=== PATIENT | female | born 1970 | race African-American/Black ===

== ENCOUNTER 2016-03-28 | Emergency (ER) | payer MEDICAID ==
[~2016-03-28] VITALS: Ht 160 cm; Wt 81.0 kg
[~2016-03-28] MED LIST: [UNRECOGNIZED DRUG - REMARK] PO
[2016-03-28] MEDS ORDERED: LISI-618 PO (00:32)
[2016-03-28] MEDS ORDERED: HYDR25TA PO (00:32)
[2016-03-28 01:32] LABS: BASOPHILS % (AUTO) 0.3 % (0.0-2.0); EOSINOPHILS % (AUTO) 0.5 % (1.0-6.0); HEMATOCRIT 41.7 % (36-46); HEMOGLOBIN 13.7 g/dL (12.0-16.0); LYMPHOCYTES # (AUTO) 1.3 K/uL (1.0-4.8); LYMPHOCYTES % (AUTO) 10.4 % (22.0-44.0); MEAN CORPUSCULAR HEMOGLOBIN 30.7 pg (26.0-34.0); MEAN CORPUSCULAR HGB CONC 32.9 G/dL (31.0-37.0); MEAN CORPUSCULAR VOLUME 93 fL (80-100); MONOCYTES # (AUTO) 0.5 K/uL (0.1-1.0); MONOCYTES % (AUTO) 4.2 % (2.0-9.0); NEUTROPHILS # (AUTO) 10.2 K/uL (1.8-7.7); NEUTROPHILS % (AUTO) 84.6 % (40.0-70.0); PLATELET COUNT (AUTO) 373 K/uL (150-450); RED BLOOD CELL COUNT(AUTO) 4.46 MIL/uL (4.00-5.20); RED CELL DISTRIBUTION WIDTH 13.8 % (11.5-14.5)
[2016-03-28 01:35] LABS: ANION GAP 8 mmol/L (8-16); CALCIUM, TOTAL 8.4 mg/dL (8.8-10.5); CARBON DIOXIDE 30 mmol/L (22-29); CHLORIDE 106 mmol/L (98-107); CREATININE 0.98 mg/dL (0.60-1.30); GLOMERULAR FILTR. RATE CALC > 60 mL/min (>60); POTASSIUM 3.3 mmol/L (3.5-5.1); SODIUM SERUM 144 mmol/L (136-145); UREA NITROGEN, BLOOD 13 mg/dL (7-18)
[2016-03-28 01:41] LABS: ALANINE AMINOTRANSFERASE 20 U/L (12-78); ALBUMIN 3.3 g/dL (3.4-5.0); ASPARTATE AMINOTRANSFERASE 11 U/L (15-37); BILIRUBIN,TOTAL 0.9 mg/dL (0.1-1.0); TOTAL PROTEIN, SERUM 7.3 g/dL (6.4-8.2)
[2016-03-28 01:58] LABS: APPEARANCE,URINE CLOUDY (CLEAR); GLUCOSE, URINE (UA) NEGATIVE (NEGATIVE); KETONES,URINE TRACE mg/dL (NEGATIVE); LEUKOCYTE ESTERASE ,URINE SMALL (NEGATIVE); OCCULT BLOOD,URINE NEGATIVE (NEGATIVE); PH,URINE 5.5 (5.0-8.0); PROTEIN,URINE POS 1+ (NEGATIVE)
[2016-03-28 02:02] LABS: ADD UA MICROSCOPIC YES
[2016-03-28 02:34] LABS: RBC,URINE 0-2 /HPF (0-2)
[2016-03-28 02:35] LABS: SQUAMOUS EPITHELIAL CELL,UR Many /LPF (None Seen)
[2016-03-28] MEDS ORDERED: ONDANSETRON HCL 4 MG/2 ML VIAL IVP ONE (03:00)
[2016-03-28] MEDS ORDERED: SODIUM CHLORIDE 0.9% 1,000 ML IV ONE (03:00)
[2016-03-28] MEDS ORDERED: HYDROmorphone 2 MG/ML SYRINGE IVP ONE (03:00)
[2016-03-28] MEDS ORDERED: POTASSIUM CHLORIDE 10% 40 MEQ/30 ML LIQUID UDCUP PO ONE (03:15)
[2016-03-28 05:12] VITALS: BP 140/88
== END 2016-03-28 05:13 | disposition home or self-care (01) ==
LOC: EMS 00:01
DX: R10.10 Upper abdominal pain, unspecified (principal); R68.83 Chills (without fever); I10 Essential (primary) hypertension
CPT/HCPCS: 36415; 80053; 81001; 83690; 84703; 85025; 87086; 96361; 96374; 96375; 99284; J1170; J2405; J7030